=== PATIENT | female | born 1990 | race Caucasian/White ===

== ENCOUNTER 2021-06-03 18:20 | Inpatient (IN) ==
[2021-06-03] MEDS ORDERED: OXYTOCIN 30 UNITS/500 ML BAG IV PRN (23:10)
[2021-06-03] MEDS ORDERED: FLUARIX QUADRIVALENT 0.5 ML SYR IM ONE (23:27)
[2021-06-03 23:38] LABS: Hematocrit (blood only) 29.8 % (37-47); Hemoglobin 9.2 g/dL (12.0-16.0); Mean Corpuscular Hgb Conc 30.9 g/dL (32-36); Mean Corpuscular Volume 77.6 fL (80-100); Mean Platelet Volume 10.3 fL (7.4-10.4); Platelet Count 279 K/uL (130-400); RDW Coefficient of Variation 16.9 % (11.5-14.5); RDW Standard Deviation 47.7 fL (36.4-46.3); Red Blood Count 3.84 M/uL (4.2-5.4); White Blood Count 9.38 K/uL (4.8-10.8)
[2021-06-03] MEDS ORDERED: miSOPROStoL 50 MCG TAB PO ONE (23:40)
[2021-06-03] MEDS ORDERED: diphenhydrAMINE Capsule 25 MG CAP PO ONE (23:45)
[2021-06-04] MEDS ORDERED: BUTORPHANOL TARTRATE 1 MG/ML VIAL ONE (05:53)
[2021-06-04] MEDS: BUTORPHANOL TARTRATE 1 MG/ML VIAL IV PRN ×3 (07:20→21:00)
[2021-06-04] MEDS ORDERED: ePHEDrine sulfate 50 MG/ML AMP ONE (08:36)
[2021-06-04] MEDS ORDERED: SODIUM CHLORIDE 0.9% INJ 10 ML VIAL ONE (08:36)
[2021-06-04] MEDS ORDERED: fentaNYL 2MCG/ML ROPIVACAINE 1.25MG/ML 100 ML BAG EPI ONE (08:37)
[2021-06-04] MEDS ORDERED: fentaNYL citrate 100 MCG/2 ML VIAL ONE (08:37)
[2021-06-04] MEDS ORDERED: BUPIVACAINE 0.25% 30 ML VIAL ONE (08:37)
[2021-06-04] MEDS: LACTATED RINGER'S 1,000 ML IV PRN ×2 (08:47→10:08)
[2021-06-04] MEDS ORDERED: diphenhydrAMINE 50 MG/ML VIAL IV PRN (09:28)
[2021-06-04] MEDS ORDERED: NALOXONE HCL 1 MG in SODIUM CHLORIDE 0.9% 1000ML 1,000 ML IV PRN (09:28)
[2021-06-04] MEDS ORDERED: NALBUPHINE HCL INJ 10 MG/ML AMP IV PRN (09:28)
[2021-06-04] MEDS ORDERED: ONDANSETRON INJ 2 MG/ML 2 ML VIAL IV PRN (09:28)
[2021-06-04] MEDS ORDERED: NALOXONE HCL 0.4 MG/1 ML VIAL/CARP IV PRN (09:28)
[2021-06-04] MEDS ORDERED: ePHEDrine sulfate 50 MG/ML AMP IV PRN (09:28)
--- NOTE | 2021-06-04 09:35 | Anesthesiology Consultation ---
Date of Service June 04, 2021 Assessment & Plan (1) Encounter for pre-operative examination: Chart Review Chart Review: Acceptable Risk for Labor Epidural Consults Requested none ASA ASA2 Proposed Anesthesia Anesthesia Type: Labor Epidural Risk / Benefits Reviewed With: PT / POA / Parent / Guardian, Accepts Plan and Informed Consent Obtained History Height/Weight Height: 5 ft 6.5 in Weight: 83.007 kg Allergies Allergy/AdvReac Type Severity Reaction Status Date / Time Penicillins Allergy Severe rash, Verified 03/15/21 07:02 difficulty breathing Cephalosporins Allergy Rash Verified 06/03/21 23:28 SULFA CECLOR Allergy Unknown Rash Uncoded 06/03/21 23:28 Medications Home Medications Medication Instructions Recorded Confirmed Last Taken fluticasone propionate 50 1 spray INTRANASAL BID 03/15/21 06/03/21 06/03/21 08:00 mcg/actuation nasal spray,suspension prenat.vits,elliot,[id number] 1 tab PO DAILY 06/03/21 06/03/21 06/03/21 Active Medications Generic Name Dose Route Start Last Admin Trade Name Freq PRN Reason Stop Dose Admin Butorphanol Tartrate 1 mg 06/04/21 05:53 06/04/21 08:47 Butorphanol Tartrate 1 Mg/Ml Vial IV 07/04/21 05:52 1 mg Q1HWA PRN Administration Pain Lactated Ringer's 1,000 mls @ 125 mls/hr 06/03/21 23:10 06/04/21 08:47 Lr IV 06/05/21 23:09 999 mls/hr .Q8H PRN Administration L&D Protocol Protocol Past Medical History Medical History Arthritis with 7 completed weeks gestation Exercise / Class Metabolic Activity II 4-5 Yardwork/Stairs/Walk up hill Past Surgical History Surgical History History of tonsillectomy Past Anesthesia History No Hx of Anesthesia Complications and No Family Hx of Anesthesia Complications History of PONV No Hx of PONV and No Hx of Motion Sickness Social History Smoking Status: Never smoker Hx Alcohol Use: No Hx Substance Use: No Physical Exam Vital Signs Last Vital Signs Temp 98.1 F 06/04/21 07:27 Pulse 106 H 06/04/21 09:31 Resp 22 06/04/21 07:27 BP 117/78 06/04/21 07:26 Pulse Ox 100 06/04/21 09:31 ENMT Mouth: no dentition abnormality Thyromental Distance: > or= 3.5 Finger Breadths Mallampati Class: II Neck normal visual inspection Respiratory normal respiratory effort Auscultation: lungs clear to auscultation bilaterally Cardiovascular Rate/Rhythm: regular rate and regular rhythm Testing Laboratory Results 06/03/21 23:29
[2021-06-04] MEDS: fentaNYL 2MCG/ML ROPIVACAINE 1.25MG/ML 100 ML BAG EPI PRN ×2 (09:46→17:07)
[2021-06-04] MEDS ORDERED: OXYTOCIN 30 UNITS/500 ML BAG IV PRN ×2 (10:19→20:45)
[2021-06-04] MEDS ORDERED: HYDROCORTISONE ACETATE 25 MG SUPP PR PRN (20:45)
[2021-06-04] MEDS ORDERED: bisacodyL 10 MG SUPP PR PRN (20:45)
[2021-06-04] MEDS ORDERED: DIPHTHERIA/TETANUS/PERTUSSIS 0.5 ML SYR/VIAL IM ONE (20:45)
[2021-06-04] MEDS ORDERED: miSOPROStoL 200 MCG TAB PR ONE (20:45)
[2021-06-04] MEDS ORDERED: oxyCODONE/ACETAMINOPHEN 5mg/325mg TAB PO PRN (20:45)
[2021-06-04] MEDS ORDERED: BENZOCAINE 20% AER SPR 82.5 GM CAN EXT PRN (20:45)
[2021-06-04] MEDS ORDERED: BENZOCAINE 20% AER SPR 82.5 GM CAN EXT ONE (20:46)
--- NOTE | 2021-06-04 21:10 | Anesthesia Procedure Note ---
Date of Service June 04, 2021 Anesthesia Post Epidural Note Vital Signs Vital Signs: Temp Pulse Resp BP Pulse Ox 36.9 C 116 H 18 124/68 89 L 06/04/21 15:15 06/04/21 20:54 06/04/21 15:15 06/04/21 20:54 06/04/21 20:37 Pain Intensity Abdomen: Pain Intensity: 8 Notes Mental Status: alert / awake / arousable Nausea / Vomiting: adequately controlled Pain: adequately controlled Airway Patency, RR, SpO2: stable & adequate BP & HR: stable & adequate Hydration State: stable & adequate Neuraxial Anesthesia: was administered and sensory block is resolving Anesthetic Complications: no major complications apparent Epidural: Removed without complications and With tip intact
--- NOTE | 2021-06-04 21:12 | Delivery Summary ---
DATE OF SERVICE: 06/04/2021 She is a 1, para 1. Blood type is A negative, group B strep negative, was brought in for ind uction after she developed generalized itching. Her liver enzymes were done that were normal. Her b ile salts were elevated, but she was very symptomatic. We tried treating her with Benadryl and she re quested induction. She was brought in at 39 weeks 5 days. Induction was started with p.o. 50 mcg o f Cytotec. About 6 hours later, she had another p.o. 50 of Cytotec. Her membranes ruptured spontane ously. Fluid was clear. We then went to augmenting with IV Pitocin, gave her several doses of IV Stadol for pain control, and when she was about 4 cm, she received epidural. The epidural was continued. The Pitocin was contin ually raised. She had a good labor pattern, good heart rate, went to full dilatation and deliv ered a live male via direct occiput anterior position over an intact perineum. Infant was suc tioned through the mouth and the nose. Shoulders were delivered without difficulty. Cord was allowe d to pulse for 1 minute, held below the placenta, then it was clamped, cut by the father. Cord blood was taken. With IV Pitocin running, the placenta was removed intact. Inspection of the perineum revealed a right sulcus laceration that went about senior living up the vaginal canal. The apex of it was identified and it was sutured with a 2-0 Vicryl. We used continuous 2-0 V icryl to obliterate the sulcus out and to beyond the hymenal ring. I then did a separate suture to a pproximate the bulbocavernosus muscle and another suture to approximate the perineal body and a runni ng subcuticular suture to approximate the perineal skin edges. Following this, I removed all sponges in the vagina, palpated the vaginal magdaleno. There was no hematoma formation. I then inserted four 2 00 mcg Cytotec rectally. At that time, I made sure there were no stitches through the rectal mucosa. Estimated blood loss was 100 mL. The patient tolerated the procedure well. Job ID: [id number]
[2021-06-04] MEDS: IBUPROFEN 600 MG TAB PO PRN (22:56)
[2021-06-05] MEDS: DOCUSATE SODIUM 100 MG CAP PO SCH ×3 (01:41→20:29)
[2021-06-05] MEDS: SUPERCREAM 0.870% 15 GM JAR EXT PRN (03:11)
[2021-06-05] MEDS: IBUPROFEN 600 MG TAB PO PRN ×3 (05:37→20:29)
[2021-06-05 05:49] LABS: Hematocrit (blood only) 26.8 % (37-47); Hemoglobin 8.3 g/dL (12.0-16.0); Mean Corpuscular Hemoglobin 23.8 pg (25-34); Mean Corpuscular Volume 76.8 fL (80-100); Mean Platelet Volume 10.4 fL (7.4-10.4); Platelet Count 269 K/uL (130-400); RDW Coefficient of Variation 17.1 % (11.5-14.5); RDW Standard Deviation 48.2 fL (36.4-46.3); Red Blood Count 3.49 M/uL (4.2-5.4); White Blood Count 16.61 K/uL (4.8-10.8)
[2021-06-05] MEDS: ACETAMINOPHEN 325 MG TAB PO PRN (07:41)
[2021-06-05] MEDS: PRENATAL VITAMIN 1 TAB PO SCH (07:42)
--- NOTE | 2021-06-05 13:20 | Obstetrical Progress Note ---
Date of Service June 05, 2021 Assessment & Plan Admission and Anticipated Discharge Date Admission Date: June 03, 2021 Subjective abdomen soft and non tender no calf tenderness ambulating well vaginal bleeding scant hgb 8.3 Results & Data ([facility]) Vital Signs (Past 12 Hours) Vital Signs Temp Pulse Pulse Resp BP BP Pulse Ox 06/05/21 11:00 36.9 C 100 H 16 110/69 97 06/05/21 09:48 36.8 C 92 H 16 110/71 96 06/05/21 07:35 36.8 C 104 H 16 112/68 96 06/05/21 03:35 37.2 C 90 18 119/75 98
[2021-06-05] MEDS: ACETAMINOPHEN W/CODEINE #3 1 TAB PO PRN ×2 (13:28→18:12)
[2021-06-05] MEDS ORDERED: bisacodyL 5 MG TABEC PO SCH (20:00)
[2021-06-05] MEDS ORDERED: SODIUM CHLORIDE 0.9% 1000ML 1,000 ML IV ONE (21:32)
[2021-06-05] MEDS ORDERED: cefOXitin 2,000 MG in DEXTROSE 5% 50 ML IV SCH (22:00)
[2021-06-05] MEDS ORDERED: Nursing to Pharmacy Communication SCH ×2 (22:00→22:30)
[2021-06-05 22:05] LABS: Basophils # (auto) 0.03 K/uL (0-0.2); Basophils % (auto) 0.2 %; Eosinophils # (auto) 0.02 K/uL (0-0.5); Eosinophils % (auto) 0.1 %; Hematocrit (blood only) 26.9 % (37-47); Hemoglobin 8.3 g/dL (12.0-16.0); Immature Granulocytes # (auto) 0.08 K/uL (0.00-0.02); Immature Granulocytes % (auto) 0.6 %; Lymphocytes # (auto) 0.77 K/uL (1.2-3.4); Lymphocytes % (auto) 5.3 %; Mean Corpuscular Hemoglobin 24.1 pg (25-34); Mean Corpuscular Hgb Conc 30.9 g/dL (32-36); Mean Corpuscular Volume 78.2 fL (80-100); Mean Platelet Volume 10.4 fL (7.4-10.4); Monocytes # (auto) 0.67 K/uL (0.11-0.59); Monocytes % (auto) 4.6 %; Neutrophils # (auto) 12.88 K/uL (1.4-6.5); Neutrophils % (auto) 89.2 %; Platelet Count 259 K/uL (130-400); RDW Coefficient of Variation 17.3 % (11.5-14.5); RDW Standard Deviation 49.4 fL (36.4-46.3); Red Blood Count 3.44 M/uL (4.2-5.4); White Blood Count 14.45 K/uL (4.8-10.8)
[2021-06-05 22:16] LABS: Partial Thromboplastin Time 26.8 Seconds (21.0-31.0)
[2021-06-05 22:21] LABS: Albumin Level 2.1 gm/dl (3.4-5.0); BUN Creatinine Ratio 11.6 (10-20); Calcium 8.3 mg/dl (8.5-10.1); Creatinine Clr Calc Pharmacy 151.5 ml/min; Est GFR (African American) 141.6 ml/min; Est GFR (Non-African American) 122.1 ml/min; Magnesium 1.7 mg/dl (1.8-2.4); Potassium 3.3 mmol/L (3.5-5.1)
[2021-06-05] MEDS ORDERED: CLINDAMYCIN 900 MG in DEXTROSE 5% 50 ML IV SCH (22:30)
[2021-06-05 22:32] LABS: Albumin Globulin Ratio 0.5 (0.9-2); Globulin 4.3 gm/dl (2.5-4.0); Thyroid Stimulating Hormone 0.997 uIu/ml (0.300-4.500); Total Protein 6.4 gm/dl (6.4-8.2)
[2021-06-05] MEDS ORDERED: POTASSIUM CHLORIDE CRTAB 20 MEQ TABCR PO STA (22:44)
[2021-06-05] MEDS ORDERED: POTASSIUM CHLORIDE 40 MEQ in SODIUM CHLORIDE 0.9% 1000ML 1,000 ML IV ONE (23:00)
[2021-06-06] MEDS: IBUPROFEN 600 MG TAB PO PRN ×3 (00:48→22:42)
[2021-06-06] MEDS: MAGNESIUM SULFATE / D5W 1 GM/100 ML BAG IV SCH ×2 (01:08→04:05)
[2021-06-06] MEDS ORDERED: ACETAMINOPHEN 1000 MG/100 ML IV IV ONE (01:23)
--- NOTE | 2021-06-06 01:55 | Hospitalist Consultation ---
Date of Consultation June 06, 2021 Assessment & Plan (1) Tachycardia: Final Assessment and Recommendations as follows : Tachycardia Sinus tachycardia on EKG Multifactorial : Sepsis secondary to complicated UTI Electrolyte abnormalities Clinical dehydration COVID-19 illness without respiratory symptoms Anemia of , hemoglobin stable PCU transfer for tachycardia CS, Azactam (safe antibiotic option if patient were to breastfeed) DC Clindamycin Antipyretic as needed IVF, replace electrolytes DVT prophylaxis. SCDs Recommend pharmacologic anticoagulation with Lovenox 40 mg subcutaneous daily once bleeding risk is deemed to be minimal eligible pending OB evaluation. Thank you very much for this consultation. Dr. Delvalle will follow patient's progress. Text document was generated using [employer] voice recognition software. It may contain grammatical or spelling errors. Kindly contact undersigned for clarification of any documentation item in question. History of Present Illness Reason for Consultation: fever, possible sepsis Requesting Physician: Dr. Mohamud Attending Physician: Yony Mohamud MD History of Present Illness PCP : Dr. Lay History obtained from patient, family, and records. Medical history significant for allergic rhinitis, psoriatic arthritis. Patient admitted under OB service since June 03, 2021 for induction of labor. COVID-19 test positive although patient denies cough, shortness of breath, fever, chills. Patient has not received COVID-19 vaccination. Subsequent vaginal delivery last June 04. Patient noted to be febrile and tachycardic around 8 PM last night. Cardiac rate 140s to 160s. Patient denies fever, chills, chest pain, cough, S OB, abdominal pain, diarrhea, dysuria. Admits to shaking tremors. IV clindamycin initiated by primary service for possible sepsis. Medical History as above Surgical History : Tonsillectomy Family History : Breast cancer, DM, hypertension Personal/Social history : Non-smoker occasional EtOH intake, employee wellness/fitness coordinator Allergies Allergy/AdvReac Type Severity Reaction Status Date / Time Penicillins Allergy Severe rash, Verified 03/15/21 07:02 difficulty breathing Cephalosporins Allergy Rash Verified 06/03/21 23:28 SULFA CECLOR Allergy Unknown Rash Uncoded 06/03/21 23:28 Home Medications Medication Instructions Recorded Confirmed Type fluticasone propionate 50 1 spray INTRANASAL BID 03/15/21 06/03/21 History mcg/actuation nasal spray,suspension prenat.vits,elliot,dag-[id number]-vihxl 1 tab PO DAILY 06/03/21 06/03/21 History Patient History Medical History Arthritis with 7 completed weeks gestation Surgical History History of tonsillectomy Social History Smoking Status: Never smoker Hx Alcohol Use: No Hx Substance Use: No Preferred Language: Belarusian Communication Ability: Effective Idea Man Required: No Beliefs That Will Affect Care: None marital status: Single Current Living Situation: Spouse Feels Safe at Home: Yes Safety Concerns: Feels Safe At This Time Assistive Devices: None Review of Systems Review of Systems: As per HPI, all 10 systems reviewed, all other ROS negative Physical Exam Physical Exam: GENERAL: uncomfortable, slightly anxious, no respiratory distress SKIN: Pallor,, warm HEENT: Pale palpebral conjunctivae, no ptosis, dry buccal mucosa NECK : Supple, no tenderness CHEST : CTA, no tenderness HEART : Tachycardic, no obvious murmurs ABDOMEN: Some distention, nontender EXTREMITIES : Minimal LE swelling, no LE tenderness, no other conspicuous deformities noted NEUROLOGIC : Coherent, no facial asymmetry, no other gross focality Results & Data Results & Data ([facility]) Vital Signs (Past 12 Hours) Vital Signs Temp Pulse Resp BP BP Pulse Ox 06/06/21 01:16 39 C H 161 H 40 H 100 06/06/21 00:40 37.2 C 120 H 18 110/67 96 06/05/21 22:00 38.9 C H 148 H 18 96 06/05/21 20:39 38.1 C H 142 H 98 06/05/21 19:54 38.8 C H 138 H 18 112/66 99 06/05/21 17:30 37.0 C 06/05/21 15:36 36.6 C 106 H 16 115/74 Laboratory Results Laboratory Results WBC 14.45 K/uL (4.8-10.8) H 06/05/21 21:57 RBC 3.44 M/uL (4.2-5.4) L 06/05/21 21:57 Hgb 8.3 g/dL (12.0-16.0) L 06/05/21 21:57 Hct 26.9 % (37-47) L 06/05/21 21:57 MCV 78.2 fL (80-100) L 06/05/21 21:57 MCH 24.1 pg (25-34) L 06/05/21 21:57 MCHC 30.9 g/dL (32-36) L 06/05/21 21:57 RDW Std Deviation 49.4 fL (36.4-46.3) H 06/05/21 21:57 RDW Coeff of Kamila 17.3 % (11.5-14.5) H 06/05/21 21:57 Plt Count 259 K/uL (130-400) 06/05/21 21:57 MPV 10.4 fL (7.4-10.4) 06/05/21 21:57 Immature Gran % (Auto) 0.6 % 06/05/21 21:57 Neut % (Auto) 89.2 % 06/05/21 21:57 Lymph % (Auto) 5.3 % 06/05/21 21:57 [place] % (Auto) 4.6 % 06/05/21 21:57 Eos % (Auto) 0.1 % 06/05/21 21:57 Baso % (Auto) 0.2 % 06/05/21 21:57 Neut # (Auto) 12.88 K/uL (1.4-6.5) H 06/05/21 21:57 Lymph # (Auto) 0.77 K/uL (1.2-3.4) L 06/05/21 21:57 [place] # (Auto) 0.67 K/uL (0.11-0.59) H 06/05/21 21:57 Eos # (Auto) 0.02 K/uL (0-0.5) 06/05/21 21:57 Baso # (Auto) 0.03 K/uL (0-0.2) 06/05/21 21:57 Immature Gran # (Auto) 0.08 K/uL (0.00-0.02) H 06/05/21 21:57 APTT 26.8 Seconds (21.0-31.0) 06/05/21 21:57 PTT Ratio 1.0 06/05/21 21:57 Sodium 138 mmol/L (136-145) 06/05/21 21:57 Potassium 3.3 mmol/L (3.5-5.1) L 06/05/21 21:57 Chloride 108 mmol/L (98-107) H 06/05/21 21:57 Carbon Dioxide 21 mmol/L (21-32) 06/05/21 21:57 Anion Gap 9.0 (3-11) 06/05/21 21:57 BUN 7 mg/dl (7-18) 06/05/21 21:57 Creatinine 0.59 mg/dl (0.6-1.2) L 06/05/21 21:57 Est Cr Clr Drug Dosing 151.5 ml/min 06/05/21 21:57 Est GFR ( Amer) 141.6 ml/min 06/05/21 21:57 Est GFR (Non-Af Amer) 122.1 ml/min 06/05/21 21:57 BUN/Creatinine Ratio 11.6 (10-20) 06/05/21 21:57 Glucose 101 mg/dl (70-99) H 06/05/21 21:57 Calcium 8.3 mg/dl (8.5-10.1) L 06/05/21 21:57 Magnesium 1.7 mg/dl (1.8-2.4) L 06/05/21 21:57 Total Bilirubin 1.0 mg/dl (0.2-1) 06/05/21 21:57 AST 49 U/L (15-37) H 06/05/21 21:57 ALT 27 U/L (12-78) 06/05/21 21:57 Alkaline Phosphatase 166 U/L (45-117) H 06/05/21 21:57 Total Protein 6.4 gm/dl (6.4-8.2) 06/05/21 21:57 Albumin 2.1 gm/dl (3.4-5.0) L 06/05/21 21:57 Globulin 4.3 gm/dl (2.5-4.0) H 06/05/21 21:57 Albumin/Globulin Ratio 0.5 (0.9-2) L 06/05/21 21:57 Procalcitonin 0.37 ng/ml (0-0.5) 06/05/21 21:57 TSH 0.997 uIu/ml (0.300-4.500) 06/05/21 21:57 [facility]19 [facility] 06/03/21 23:20 SARS-CoV-2, RNA, NAAT POSITIVE (NEGATIVE) A* 06/03/21 23:20 Blood Type A Negative 06/05/21 05:35 Antibody Screen NEGATIVE 06/05/21 05:35 Screen Negative (Negative) 06/05/21 05:35 UA WBC esterase, nitrite positive Diagnostic Findings Chest x-ray as per my interpretation no congestion EKG as per my interpretation : Rate 140, sinus tachycardia, normal axis, incomplete RBBB, no ischemia
[2021-06-06] MEDS ORDERED: SODIUM CHLORIDE 0.9% 1000ML 1,000 ML IV ONE (02:02)
[2021-06-06 02:44] LABS: Appearance Urine Clear (Clear); Bacteria Urine Automated 2+ (Negative); Bilirubin Urine Negative (Negative); Blood Urine 3+ (Negative); Color Urine Yellow; Glucose Urine UA Negative (Negative); Ketones Urine Negative (Negative); Leukocyte Esterase Urine 2+ (Negative); Nitrite Urine Positive (Negative); Protein Urine Negative (Negative); Specific Gravity Urine 1.005 (1.000-1.030); Urobilinogen Urine Negative (Negative)
[2021-06-06] MEDS ORDERED: AZTREONAM 1,000 MG in DEXTROSE 5% 100 ML IV STA (04:02)
[2021-06-06] MEDS ORDERED: AZTREONAM CONSULT ACTIVE PRN (04:10)
[2021-06-06] MEDS ORDERED: NSS + 20MEQ KCL 20 MEQ/1,000 ML BAG IV ONE ×2 (04:30→07:00)
[2021-06-06] MEDS ORDERED: POTASSIUM CHLORIDE CRTAB 20 MEQ TABCR PO STA (04:37)
[2021-06-06] MEDS: AZTREONAM 2,000 MG in DEXTROSE 5% 100 ML IV SCH ×3 (04:53→21:10)
[2021-06-06 05:41] LABS: Hematocrit (blood only) 23.4 % (37-47); Hemoglobin 7.2 g/dL (12.0-16.0); Mean Corpuscular Hgb Conc 30.8 g/dL (32-36); Mean Platelet Volume 10.3 fL (7.4-10.4); Platelet Count 229 K/uL (130-400); RDW Coefficient of Variation 17.5 % (11.5-14.5); RDW Standard Deviation 50.3 fL (36.4-46.3); White Blood Count 12.05 K/uL (4.8-10.8)
[2021-06-06 06:04] LABS: BUN Creatinine Ratio 8.7 (10-20); Blood Urea Nitrogen 4 mg/dl (7-18); Calcium 7.4 mg/dl (8.5-10.1); Carbon Dioxide 20 mmol/L (21-32); Chloride 117 mmol/L (98-107); Creatinine Clr Calc Pharmacy 180.3 ml/min; Est GFR (African American) > 150.0 ml/min; Est GFR (Non-African American) 130.7 ml/min; Glucose 85 mg/dl (70-99); Magnesium 2.1 mg/dl (1.8-2.4); Potassium 3.6 mmol/L (3.5-5.1); Sodium 136 mmol/L (136-145)
[2021-06-06 06:58] LABS: Basophils # (auto) 0.02 K/uL (0-0.2); Basophils % (auto) 0.2 %; Immature Granulocytes # (auto) 0.07 K/uL (0.00-0.02); Immature Granulocytes % (auto) 0.6 %; Lymphocytes # (auto) 0.46 K/uL (1.2-3.4); Lymphocytes % (auto) 3.8 %; Monocytes # (auto) 0.49 K/uL (0.11-0.59); Monocytes % (auto) 4.1 %; Neutrophils # (auto) 11.01 K/uL (1.4-6.5); Neutrophils % (auto) 91.3 %; RBC Morphology Unremarkable
--- NOTE | 2021-06-06 08:09 | XRay Report ---
XR chest 1V portable INDICATION: MN ^tachy . TECHNIQUE: Single frontal radiograph of the chest was obtained. Comparison: None available at the time of this dictation. FINDINGS: No lines and tubes are seen. The cardiomediastinal silhouette is normal. The lungs are clear. No evid ence of pleural effusion or pneumothorax. IMPRESSION: No acute chest disease. ACT 112: Negative or not required by law. Electronically signed by: Segundo Maguire M.D. 06/06/2021 8:08 AM
--- NOTE | 2021-06-06 08:15 | XRay Report ---
XR chest 1V portable INDICATION: MN ^low o2 . TECHNIQUE: Single frontal radiograph of the chest was obtained. Comparison: Comparison is made to chest one view 06/05/2021 FINDINGS: No lines and tubes are seen. The cardiomediastinal silhouette is normal. The lungs are clear. No evid ence of pleural effusion or pneumothorax. IMPRESSION: No acute chest disease. ACT 112: Negative or not required by law. Electronically signed by: Segundo Maguire M.D. 06/06/2021 8:13 AM
[2021-06-06] MEDS ORDERED: NON-FORMULARY MEDICATION (Prenat.Vits,Cal,Min-Iron-Folic Tablet) PO SCH (09:00)
[2021-06-06] MEDS: FLUTICASONE PROPIONATE NA SPR 16 GM BTL SCH ×2 (11:33→21:10)
[2021-06-06] MEDS: PRENATAL VITAMIN 1 TAB PO SCH (11:34)
[2021-06-06] MEDS: DOCUSATE SODIUM 100 MG CAP PO SCH ×2 (11:34→21:13)
[2021-06-06] MEDS: FERROUS SULFATE 325 MG TAB PO SCH (11:34)
--- NOTE | 2021-06-06 12:08 | Obstetrical Progress Note ---
Date of Service June 06, 2021 Assessment & Plan Admission and Anticipated Discharge Date Admission Date: June 03, 2021 Subjective abdomen soft and nontender no calf tenderness temp 100.1 pulse 110 on iv antibiotics responding well vaginal bleeding scant hgb 7.2 Results & Data ([facility]) Vital Signs (Past 12 Hours) Vital Signs Temp Pulse Pulse Pulse Pulse Resp BP 06/06/21 07:20 112 H 06/06/21 06:10 37.1 C 06/06/21 03:50 37.1 C 126 H 20 109/62 06/06/21 02:36 39.1 C H 156 H 06/06/21 02:10 39.3 C H 06/06/21 01:54 39.4 C H 155 H 18 100/51 L 06/06/21 01:16 39 C H 161 H 40 H 06/06/21 00:40 37.2 C 120 H 18 110/67 Pulse Ox 06/06/21 07:20 06/06/21 06:10 06/06/21 03:50 96 06/06/21 02:36 96 06/06/21 02:10 96 06/06/21 01:54 97 06/06/21 01:16 100 06/06/21 00:40 96
[2021-06-06] MEDS: ACETAMINOPHEN 325 MG TAB PO PRN ×2 (13:19→21:22)
[2021-06-06] MEDS ORDERED: NSS + 20MEQ KCL 20 MEQ/1,000 ML BAG IV SCH (14:30)
--- NOTE | 2021-06-06 14:30 | Electrocardiogram Report ---
Test Reason : Blood Pressure : / mmHG Vent. Rate : 138 BPM Atrial Rate : 138 BPM P-R Int : 144 ms QRS Dur : 084 ms QT Int : 274 ms P-R-T Axes : 053 051 032 degrees QTc Int : 415 ms Sinus tachycardia Nonspecific ST abnormality No previous ECGs available Confirmed by Forrest Rae ([id number]) on 06/06/2021 2:29:48 PM Referred By: Yony Mohamud Confirmed By:Brian Rae
--- NOTE | 2021-06-06 14:32 | Electrocardiogram Report ---
Test Reason : Blood Pressure : / mmHG Vent. Rate : 147 BPM Atrial Rate : 147 BPM P-R Int : 120 ms QRS Dur : 078 ms QT Int : 270 ms P-R-T Axes : 062 079 050 degrees QTc Int : 422 ms Sinus tachycardia Otherwise normal ECG When compared with ECG of 05-JUN-2021 22:36, (unconfirmed) Nonspecific T wave abnormality no longer evident in Anterior leads Confirmed by Forrest Rae ([id number]) on 06/06/2021 2:31:54 PM Referred By: Yony Mohamud Confirmed By:Brian Rae
[2021-06-06] MEDS: ACETAMINOPHEN W/CODEINE #3 1 TAB PO PRN (21:11)
[2021-06-07] MEDS ORDERED: POTASSIUM CHLORIDE CRTAB 20 MEQ TABCR PO ONE (01:00)
[2021-06-07] MEDS ORDERED: POTASSIUM CHLORIDE 40 MEQ in SODIUM CHLORIDE 0.9% 1000ML 1,000 ML IV ONE (02:45)
[2021-06-07] MEDS: ACETAMINOPHEN 325 MG TAB PO PRN ×3 (03:10→21:35)
[2021-06-07 05:21] LABS: Hematocrit (blood only) 23.8 % (37-47); Hemoglobin 7.3 g/dL (12.0-16.0); Mean Corpuscular Hemoglobin 24.1 pg (25-34); Mean Corpuscular Hgb Conc 30.7 g/dL (32-36); Mean Corpuscular Volume 78.5 fL (80-100); Mean Platelet Volume 9.9 fL (7.4-10.4); Platelet Count 227 K/uL (130-400); RDW Coefficient of Variation 17.6 % (11.5-14.5); RDW Standard Deviation 50.4 fL (36.4-46.3); Red Blood Count 3.03 M/uL (4.2-5.4); White Blood Count 6.29 K/uL (4.8-10.8)
[2021-06-07 05:53] LABS: Blood Urea Nitrogen 6 mg/dl (7-18); Calcium 8.1 mg/dl (8.5-10.1); Carbon Dioxide 21 mmol/L (21-32); Chloride 114 mmol/L (98-107); Creatinine Clr Calc Pharmacy 211.1 ml/min; Est GFR (African American) > 150.0 ml/min; Est GFR (Non-African American) 137.7 ml/min; Glucose 72 mg/dl (70-99); Magnesium 1.7 mg/dl (1.8-2.4); Phosphorus 3.2 mg/dl (2.5-4.9); Potassium 3.9 mmol/L (3.5-5.1); Sodium 141 mmol/L (136-145)
[2021-06-07] MEDS: AZTREONAM 2,000 MG in DEXTROSE 5% 100 ML IV SCH ×3 (06:08→21:29)
[2021-06-07] MEDS: IBUPROFEN 600 MG TAB PO PRN ×3 (06:10→20:17)
[2021-06-07 06:36] LABS: ALC (manual) 0.71 K/uL (1.2-3.4); Basophils # (manual) 0.16 K/uL (0-0.2); Basophils % (manual) 2.6 %; Lymphocytes # (manual) 0.71 K/uL (1.2-3.4); Lymphocytes % (manual) 11.3 %; Monocytes # (manual) 0.06 K/uL (0.11-0.59); Monocytes % (manual) 0.9 %; Myelocytes # (manual) 0.06 K/uL (0-0); Myelocytes % (manual) 0.9 %; Neutrophils % (manual) 84.3 %; Poikilocytosis Present
[2021-06-07] MEDS: PRENATAL VITAMIN 1 TAB PO SCH (07:33)
[2021-06-07] MEDS: FLUTICASONE PROPIONATE NA SPR 16 GM BTL SCH ×2 (07:33→21:41)
[2021-06-07] MEDS: FERROUS SULFATE 325 MG TAB PO SCH (07:33)
[2021-06-07] MEDS: DOCUSATE SODIUM 100 MG CAP PO SCH ×2 (07:34→20:19)
--- NOTE | 2021-06-07 09:47 | Obstetrical Progress Note ---
Date of Service June 07, 2021 Assessment & Plan Admission and Anticipated Discharge Date Admission Date: June 03, 2021 Subjective abdomen soft and non tender no calf tenderness vaginal bleeding scant hgb 7.3 pulse down to 90 beats per minute temperature spike to 101.8 on iv antibiotics subjectively patient has improved Results & Data ([facility]) Vital Signs (Past 12 Hours) Vital Signs Temp Pulse Pulse Pulse Resp BP BP 06/07/21 07:40 36.6 C 82 16 104/72 06/07/21 07:35 90 22 104/72 06/07/21 04:17 36.8 C 72 18 06/07/21 00:29 37.4 C 111 H 23 114/66 06/06/21 23:54 37.8 C H 06/06/21 22:30 38.8 C H BP Pulse Ox 06/07/21 07:40 97 06/07/21 07:35 98 06/07/21 04:17 105/70 95 06/07/21 00:29 96 06/06/21 23:54 06/06/21 22:30
--- NOTE | 2021-06-07 19:44 | Hospitalist Progress Note ---
Date of Service June 07, 2021 Assessment & Plan (1) Tachycardia: Plan: Final Assessment and Recommendations as follows : Tachycardia Sinus tachycardia on EKG Resolved Multifactorial : Sepsis secondary to complicated UTI Urine culture is growing gram-negative bacilli-identification and sensitivity pending Blood culture is growing gram-negative bacilli-sensitivities pending Has been on intravenous Azactam Oral antibiotic and duration depending on sensitivity Electrolyte abnormalities Supplemented and corrected Clinical dehydration-received intravenous fluid COVID-19 illness without respiratory symptoms Did not receive vaccine for Covid Remains asymptomatic-does not require any treatment Likely discharge tomorrow Anemia of , hemoglobin stable Hemoglobin remains stable Status post normal vaginal delivery The baby has been negative Covid testing x2 and is discharged DVT prophylaxis. SCDs Recommend pharmacologic anticoagulation with Lovenox 40 mg subcutaneous daily once bleeding risk is deemed to be minimal eligible pending OB evaluation. Likely discharge tomorrow Admission and Anticipated Discharge Date Admission Date: June 03, 2021 Subjective 06/07/2021 The patient was seen and examined in ICU and in the Covid room She has been feeling much better Denies any fever and/or chills, any urinary symptoms or any nausea or vomiting She hasn't been requiring any oxygen since admission Review of Systems Review of Systems: All systems reviewed and are unremarkable except as noted below Physical Exam Physical Exam: Lying in bed comfortably with the in lap Constitutional: well developed and well nourished; not ill appearing Eyes: PERRL, conjunctivae normal, anicteric sclerae ENMT: external ear and nose normal, oropharynx normal Neck: trachea midline, no thyromegaly Respiratory: no respiratory distress and no cough Auscultation: lungs clear to auscultation bilaterally Cardiovascular: Rate/Rhythm: regular rate and regular rhythm; not tachycardic Heart Sounds: normal S1 and normal S2; no murmur Extremities: no edema Gastrointestinal (Abdomen): Inspection/Auscultation: + abdomen distended and normal bowel sounds Percussion/Palpation: + abdomen tender (Mildly tender status post normal delivery) and abdomen soft Musculoskeletal: No acute arthritis in any joint Neurologic: Alert, awake and oriented x3. No focal sensory or motor deficit appreciated Results & Data Results & Data ([facility]) Vital Signs (Past 12 Hours) Vital Signs Temp Pulse Pulse Resp BP BP Pulse Ox 06/07/21 16:20 36.6 C 79 19 129/79 98 06/07/21 11:58 36.8 C 80 17 113/69 97 06/07/21 07:40 36.6 C 82 16 104/72 97 Laboratory Results Short CBC 06/07/21 Range/Units 04:47 WBC 6.29 (4.8-10.8) K/uL Hgb 7.3 L (12.0-16.0) g/dL Hct 23.8 L (37-47) % Plt Count 227 (130-400) K/uL BMP 06/07/21 04:47 Sodium 141 Potassium 3.9 Chloride 114 H Carbon Dioxide 21 BUN 6 L Creatinine 0.41 L Glucose 72 Calcium 8.1 L Medications Administered Current Inpatient Medications Acetaminophen (Acetaminophen 325 Mg Tab) 650 mg PO Q6H PRN PRN Reason: Pain/BARLOW/Fever Stop: 07/04/21 20:44 Last Admin: 06/07/21 07:34 Dose: 650 mg Documented by: Acetaminophen/Codeine Phosphate (Acetaminophen W/Codeine #3 1 Tab) 1 - 2 tab PO Q4H PRN PRN Reason: Pain not controlled with... Stop: 07/04/21 20:44 Last Admin: 06/05/21 18:12 Dose: 2 tab Documented by: Aztreonam (Aztreonam Consult Active) 1 ea N/A UD PRN PRN Reason: Consult Stop: 07/06/21 04:09 Benzocaine (Benzocaine 20% Aer Spr 82.5 Gm Can) 1 appln EXT PRN PRN PRN Reason: Perineal Discomfort Stop: 07/04/21 20:44 Last Admin: 06/04/21 21:09 Dose: 82.5 appln Documented by: Bisacodyl (Bisacodyl 10 Mg Supp) 10 mg CO DAILY PRN PRN Reason: No BM on 2nd post- day Stop: 07/04/21 20:44 Butorphanol Tartrate (Butorphanol Tartrate 1 Mg/Ml Vial) 1 mg IV Q1HWA PRN PRN Reason: Pain Stop: 07/04/21 05:52 Last Admin: 06/04/21 21:00 Dose: 1 mg Documented by: Cocaine HCl (Supercream 0.870% 15 Gm Jar) 1 gm EXT BID PRN PRN Reason: Hemorrhoidal Inflammation Stop: 06/18/21 20:44 Last Admin: 06/05/21 03:11 Dose: 1 gm Documented by: Docusate Sodium (Docusate Sodium 100 Mg Cap) 100 mg PO DAILY@ [facility] Stop: 07/04/21 20:59 Last Admin: 06/07/21 07:34 Dose: 100 mg Documented by: Ferrous Sulfate (Ferrous Sulfate 325 Mg Tab) 325 mg PO DAILY@08 [facility] Stop: 07/06/21 07:59 Last Admin: 06/07/21 07:33 Dose: 325 mg Documented by: Fluticasone Propionate (Fluticasone Propionate Na Spr 16 Gm Btl) 1 sprays NA BID [facility] Stop: 07/06/21 08:59 Last Admin: 06/07/21 07:33 Dose: 1 sprays Documented by: Hydrocortisone (Hydrocortisone Acetate 25 Mg Supp) 25 mg CO BID PRN PRN Reason: Hemorrhoidal Inflammation Stop: 07/04/21 20:44 Oxytocin (Pitocin) 30 units in 500 mls @ 333.333 mls/hr IV .Q1H30M PRN; Protocol PRN Reason: Bleeding Control Stop: 07/03/21 23:09 Oxytocin (Pitocin) 30 units in 500 mls @ 333.333 mls/hr IV .Q1H30M PRN; Protocol PRN Reason: Bleeding Control Stop: 07/04/21 20:44 Aztreonam 2,000 mg/ Dextrose 110 mls @ 110 mls/hr IV Q8 [facility] Stop: 06/11/21 04:14 Last Infusion: 06/07/21 17:21 Dose: Infused Documented by: Ibuprofen (Ibuprofen 600 Mg Tab) 600 mg PO Q4H PRN PRN Reason: Pain/BARLOW/Cramping/Fever Stop: 07/04/21 20:44 Last Admin: 06/07/21 11:47 Dose: 600 mg Documented by: Prenat Multivit/Assumption/Iron/Folic Ac ( Vitamin 1 Tab) 1 tab PO DAILY@08 [facility] Stop: 07/05/21 07:59 Last Admin: 06/07/21 07:33 Dose: 1 tab Documented by:
[2021-06-08] MEDS: AZTREONAM 2,000 MG in DEXTROSE 5% 100 ML IV SCH ×2 (05:52→13:46)
[2021-06-08 06:11] LABS: Hematocrit (blood only) 25.9 % (37-47); Hemoglobin 7.9 g/dL (12.0-16.0); Mean Corpuscular Hemoglobin 23.8 pg (25-34); Mean Corpuscular Hgb Conc 30.5 g/dL (32-36); Mean Platelet Volume 10.1 fL (7.4-10.4); Platelet Count 288 K/uL (130-400); RDW Standard Deviation 50.5 fL (36.4-46.3); Red Blood Count 3.32 M/uL (4.2-5.4); White Blood Count 8.97 K/uL (4.8-10.8)
[2021-06-08 06:39] LABS: BUN Creatinine Ratio 16.2 (10-20); Blood Urea Nitrogen 7 mg/dl (7-18); Calcium 8.1 mg/dl (8.5-10.1); Carbon Dioxide 22 mmol/L (21-32); Chloride 111 mmol/L (98-107); Creatinine Clr Calc Pharmacy 194.7 ml/min; Est GFR (African American) > 150.0 ml/min; Est GFR (Non-African American) 132.6 ml/min; Glucose 81 mg/dl (70-99); Magnesium 1.7 mg/dl (1.8-2.4); Potassium 3.5 mmol/L (3.5-5.1); Sodium 140 mmol/L (136-145)
[2021-06-08 06:48] LABS: Basophils # (auto) 0.04 K/uL (0-0.2); Basophils % (auto) 0.4 %; Echinocytes 1+; Eosinophils # (auto) 0.08 K/uL (0-0.5); Eosinophils % (auto) 0.9 %; Immature Granulocytes # (auto) 0.08 K/uL (0.00-0.02); Immature Granulocytes % (auto) 0.9 %; Lymphocytes # (auto) 1.73 K/uL (1.2-3.4); Lymphocytes % (auto) 19.3 %; Monocytes # (auto) 0.62 K/uL (0.11-0.59); Monocytes % (auto) 6.9 %; Neutrophils # (auto) 6.42 K/uL (1.4-6.5); Neutrophils % (auto) 71.6 %; Polychromasia 1+
[2021-06-08] MEDS: DOCUSATE SODIUM 100 MG CAP PO SCH (08:30)
[2021-06-08] MEDS: FERROUS SULFATE 325 MG TAB PO SCH (08:31)
[2021-06-08] MEDS: FLUTICASONE PROPIONATE NA SPR 16 GM BTL SCH (08:31)
[2021-06-08] MEDS: PRENATAL VITAMIN 1 TAB PO SCH (08:31)
[2021-06-08] MEDS: ACETAMINOPHEN 325 MG TAB PO PRN (11:09)
--- NOTE | 2021-06-08 11:57 | Obstetrical Progress Note ---
Date of Service June 08, 2021 Assessment & Plan Admission and Anticipated Discharge Date Admission Date: June 03, 2021 Subjective abdomen soft and non tender no calf tenderness ambulating well vaginal bleeding scant hgb 7.9 cultures and sensitivity are back will discharge on cipro 500 mg bid Results & Data ([facility]) Vital Signs (Past 12 Hours) Vital Signs Temp Pulse Pulse Pulse Resp BP BP 06/08/21 11:15 36.5 C 85 18 124/78 06/08/21 08:00 77 06/08/21 07:43 36.9 C 86 16 112/73 06/08/21 04:03 36.9 C 79 18 121/73 06/08/21 00:00 37 C 76 75 16 111/64 Pulse Ox 06/08/21 11:15 99 06/08/21 08:00 06/08/21 07:43 97 06/08/21 04:03 97 06/08/21 00:00 94
[2021-06-08] MEDS ORDERED: CIPROFLOXACIN 500 MG TAB PO STA (12:28)
--- NOTE | 2021-06-08 13:31 | Hospitalist Progress Note ---
Date of Service June 08, 2021 Assessment & Plan (1) Tachycardia: Plan: Multifactorial : Sepsis secondary to complicated UTI Urine culture is growing gram-negative bacilli-identification and sensitivity pending Blood culture is growing gram-negative bacilli-sensitivities pending Has been on intravenous Azactam Oral antibiotic and duration depending on sensitivity Sensitivities are back. Discharged on ciprofloxacin 500 twice daily. Follow-up with PCP as an outpatient. Patient remains on room air. Continue supportive management WBC is within normal limit. Patient remains afebrile. Would recommend to give a dose of ciprofloxacin now before patient is discharge d. Admission and Anticipated Discharge Date Admission Date: June 03, 2021 Subjective Patient is doing okay this morning. at bedside. Denies any chest pain, shortness of breath, cough or any palpitations hemodynamically doing okay. Currently on room air. Review of Systems Review of Systems: All systems reviewed & are unremarkable except as noted in HPI & below Physical Exam Physical Exam: General: A&Ox3 HENT: NCAT, MMM, EOMI Eyes: PERRLA Neck: Supple, normal range of motion CVS: normal rate and rhythm Resp: b/l good breath sounds Abdomen: Nondistended Extremities: No c/c/e Neuro: face symmetric, no focal deficit Skin: warm and dry, no rashes/lesions/errythema MSK: no joint swelling/erythema Results & Data Results & Data ([facility]) Vital Signs (Past 12 Hours) Vital Signs Temp Pulse Pulse Pulse Resp BP BP 06/08/21 12:00 06/08/21 11:15 36.5 C 85 18 124/78 06/08/21 08:00 77 06/08/21 07:43 36.9 C 86 16 112/73 06/08/21 04:03 36.9 C 79 18 121/73 Pulse Ox Pulse Ox 06/08/21 12:00 99 06/08/21 11:15 99 06/08/21 08:00 06/08/21 07:43 97 06/08/21 04:03 97
[2021-06-08] MEDS: SUPERCREAM 0.870% 15 GM JAR EXT PRN (15:23)
--- NOTE | 2021-06-08 16:12 | Discharge Summary (DS) ---
DATE OF ADMISSION: 06/03/2021 DATE OF DISCHARGE: 06/08/2021 HOSPITAL COURSE: Mrs. Snow was brought in at 39+ weeks gestational age for induction. She had s ymptoms of severe itching at home. Liver profile was done including bile salts. Bile salts were elev ated. She was very symptomatic. She underwent a routine induction, she was given 2 p.o. doses of 50 mcg Cytotec and then later switched to IV Pitocin. After she arrived in the hospital, she screened p ositive for COVID. We delivered her at an isolated area in the hospital. The was large, 9 po unds 4 ounces. Postoperatively, she developed a fever and tachycardia. This was managed with 2 bloo d cultures, urine culture and she was started on Cleocin 900 mg due to multiple drug allergies. Even tually when the lab work started to come back, one of the blood cultures was positive for E. coli and the urine culture was also positive for E. coli. She was then switched by the hospitalist to a diff erent antibiotic and the hospitalist was consulted as soon as she spiked a fever and developed tachyc ardia. She was treated with IV antibiotics. She responded well. It took her about 48 hours when she became afebrile. Her hemoglobin dipped as far as 7.2, but at the time of discharge, it was 7.9. Her white cell count, which had been high, went from in the 13,000s to 8.9 at the time of discharge. At the time of discharge, she was ambulating well, eating well. She had been afebrile for over 24 hour s on IV antibiotics. I consulted with the hospitalist for permission to discharge the patient. She is going to be discharged on Cipro 500 mg twice a day for 2 weeks. It should be noted that cultures and sensitivities were reviewed, and that the E. coli was sensitive to all medications tested. She i s going to be followed in our office for postoperative care. She was given the usual instructions to call if she had a temperature over 100 or any problems. Job ID: [id number]
== END 2021-06-08 15:35 | disposition home or self-care (01) | DRG 805 ==
LOC: 4S1 22:56 → 4W 06-04 00:20 → 3E 06-05 00:13 → 1E 06-06 03:08